=== PATIENT | male | born 1955 | race Caucasian/White ===

== ENCOUNTER → 2018-05-23 | Outpatient (CLI) | payer MEDICAID, MEDICARE ==
[2018-05-23] VITALS (9 sets, daily range): BP systolic 110–133; BP diastolic 64–88
[~2018-05-23] MED LIST: CARDIZEM CD120 MG PO; CARTIA XT240 M1 PO; CEFDINIR300 MG PO; CIPRO500 MG PO; ELIQUIS5 MG PO; ERYTHROMYCIN250 M1 PO; FLAGYL 250 MG250 MG PO; FLOMAX0.4 MG PO; KLOR-CON 1010 MEQ PO; LASIX 80 MG TAB80 MG PO; LISINOPRIL10 MG PO; MIRALAX17 GM PO; PACERONE 200 M200 M1 PO; POTASSIUM20 PO; PREDNISONE 10 M10 MG PO; PROSCAR 5MG TABL5 MG PO; PROTONIX40 M1 PO; SENNA-DOCUSATE1 EACH PO; SINGULAIR 10 MG10 MG PO
--- NOTE | 2018-05-23 15:52 | TEE ---
[place] [address] TRANSESOPHAGEAL ECHOCARDIOGRAM Name: ROSALEE MCCORD Room: [facility]#: [id number] Admission: 05/23/18 Attend Phys: Tre Wyatt, Discharge: Date of : 53 Date of Service: 05/23/18 1552 Report #: [id number] THIS REPORT FOR: //name// APPROVED REPORT Study performed: 05/23/2018 14:03:30 EXAM: Transesophageal Echocardiogram Patient Location: Out-Patient Status: routine BSA: 2.23 HR: 93 bpm BP: 125/70 mmHg Rhythm: Atrial Fibrillation Other Information Study Quality: Good Indications Atrial Fibrillation Echo Enhancing Agent Indication: Rule out Shunt Agent(s) / Amount(s) Used: Agitated Saline 10 cc Procedure After obtaining informed consent, patient underwent transesophageal echo in the [employer]. Type of Sedation : Conscious Sedation Sedation was administered by aSira Laboy. Sedation start time: 1405 Case end Time: 1420 Sedation was achieved intravenously with: Versed (4) Fentanyl (100) Transesophageal probe was inserted and advanced into esophagus without difficulty by Tre Wyatt MD, [facility]. Echo enhancement indication: R/O Septal defect. Echo enhancement agent administered: Agitated Saline The ASTRID was performed without complications. Synchronized Cardioversion acheived with 300 Joules after 1 attempt(s). Rhythm following Synchronized Cardioversion: Normal Sinus Rhythm Throughout the procedure, the blood pressure, pulse oximetry, cardiac rhythm, and rate were monitored. The patient tolerated the procedure without adverse effects. Recovery from conscious sedation was uneventful [place] [address] TRANSESOPHAGEAL ECHOCARDIOGRAM Name: ROSALEE MCCORD Room: [facility]#: [id number] Admission: 05/23/18 Attend Phys: Tre Wyatt, Discharge: Date of : 53 Date of Service: 05/23/18 1552 Report #: [id number] stable. Left Ventricle The left ventricle is normal size. There is normal LV segmental wall motion. There is normal left ventricular wall thickness. Left ventricular systolic function is normal. LVEF is 60-65%. Right Ventricle The right ventricle is normal size. The right ventricular systolic function is normal. Atria No thrombus is visualized in the left atrium or appendage. The left atrium size is normal. Interatrial septum is intact without evidence of ASD or PFO. Lipomatus atrial septal hypertrophy is present. The right atrium size is normal. Aortic Valve The aortic valve is normal in structure. No aortic regurgitation is present. There is no aortic valvular stenosis. Mitral Valve The mitral valve is normal in structure. Trace mitral regurgitation. No evidence of mitral valve stenosis. Tricuspid Valve The tricuspid valve is normal in structure. Mild tricuspid regurgitation. Pulmonic Valve The pulmonary valve is normal in structure. There is no pulmonic valvular regurgitation. Great Vessels The aortic root is normal in size. Pericardium There is no pericardial effusion. <Conclusion> The left ventricle is normal size. There is normal left ventricular wall thickness. Left ventricular systolic function is normal. LVEF is 60-65%. Interatrial septum is intact without evidence of ASD or PFO. Lipomatus atrial septal [place] [address] TRANSESOPHAGEAL ECHOCARDIOGRAM Name: RITU MCCORDSamira Anthony Room: [facility]#: [id number] Admission: 05/23/18 Attend Phys: Tre Wyatt, Discharge: Date of : 53 Date of Service: 05/23/181551 Report #: [id number] No thrombus is visualized in the left atrium or appendage. The left atrium size is normal. Trace mitral regurgitation. Mild tricuspid regurgitation. <ELECTRONICALLY SIGNED> By: Tre Wyatt MD, FACC 05/23/181551 51 51 Tre Wyatt MD, FACC /INF
--- NOTE | 2018-05-28 08:43 | CARD ---
[address] [address] CARDIAC CATH REPORT Name: ROSALEE MCCORD Room: [facility]#: [id number] Admission: 05/23/18 Attend Phys: Tre Wyatt MD Discharge: Date of : 53 Report #: [id number] THIS REPORT FOR: //name// CC: [facility] physician/PCP Ariana Wyatt DATE OF SERVICE: 05/23/2018 INDICATION: Persistent atrial fibrillation. PROCEDURE: Transesophageal guided cardioversion. DESCRIPTION OF PROCEDURE: After informed consent was obtained, a transesophageal echocardiogram was performed and will be reported separately. Finding no evidence of intracardiac thrombus, the patient was cardioverted from atrial fibrillation to normal sinus rhythm with a single biphasic shock of 300 joules. The patient received 4 mg of intravenous Versed and 100 mg of intravenous fentanyl for conscious sedation. The patient tolerated the procedure well without complication. IMPRESSION: 1. Persistent atrial fibrillation. 2. Successful direct current cardioversion to sinus rhythm. RECOMMENDATIONS: The patient to follow up with nurse practitioner. The patient started on amiodarone in loading fashion. <ELECTRONICALLY SIGNED> By: Tre Wyatt MD, [facility] 05/28/18 0843 1553 0105Michael Sophia Wyatt MD, FACC /nt
== END | disposition home or self-care (01) ==
LOC: M.CL 13:36
DX: I48.1 Persistent atrial fibrillation (principal); I34.0 Nonrheumatic mitral (valve) insufficiency; I07.1 Rheumatic tricuspid insufficiency; J44.9 Chronic obstructive pulmonary disease, unspecified; Z79.899 Other long term (current) drug therapy; Z98.890 Other specified postprocedural states

== ENCOUNTER 2018-06-02 14:44 | Inpatient (IN) | payer MEDICARE, MEDICAID ==
[~2018-06-02] VITALS: Ht 185.4 cm; Wt 90.7 kg
--- NOTE | ~2018-06-02 | PROC ---
[address] [address] PROCEDURE REPORT Name: ROSALEE MCCORD Room: [address] ADM IN M.R.#: [id number] Admission: 06/02/18 Attend Phys: Chasity Chávez MD Discharge: Date of : 53 Report #: [id number] THIS REPORT FOR: //name// For GI report, please see the Provation report in Perceptive 7 content. By: [id number] Records Staff [facility] /MORIAH
--- NOTE | ~2018-06-02 | PROC ---
[address] [address] PROCEDURE REPORT Name: ROSALEE MCCORD Room: [address] ADM IN M.R.#: [id number] Admission: 06/02/18 Attend Phys: Chasity Chávez MD Discharge: Date of : 53 Report #: [id number] THIS REPORT FOR: //name// For GI report, please see the Provation report in Perceptive 7 content. By: [facility]2Medical Records Staff JULIAN /MORIAH
--- NOTE | ~2018-06-02 | PROC ---
[address] [address] PROCEDURE REPORT Name: ROSALEE MCCORD Room: [address] ADM IN M.R.#: [id number] Admission: 06/02/18 Attend Phys: Chasity Chávez MD Discharge: Date of : 53 Report #: [id number] THIS REPORT FOR: //name// For GI report, please see the Provation report in Perceptive 7 content. By: [id number] Records Staff [facility] /MORIAH
[~2018-06-02 14:44] MED LIST changes: -CARTIA XT240 M1 PO; -CEFDINIR300 MG PO; -ERYTHROMYCIN250 M1 PO; -FLOMAX0.4 MG PO; -MIRALAX17 GM PO; -POTASSIUM20 PO; -PREDNISONE 10 M10 MG PO; -SENNA-DOCUSATE1 EACH PO; -SINGULAIR 10 MG10 MG PO
[2018-06-02 14:59] VITALS: BP 105/48
[2018-06-02] MEDS ORDERED: CARTIA XT240 M1 PO (15:02)
[2018-06-02] MEDS ORDERED: POTASSIUM20 PO (15:03)
[2018-06-02 15:27] LABS: HEMATOCRIT 43.6 % (42.0-52.0); HEMOGLOBIN 14.4 gm/dL (14.0-18.0); MCH 28.8 pg (26.0-34.0); MCV 87.5 fL (80.0-100.0); MPV 8.7 fl. (7.2-11.1); NUCLEATED RBCS 0 /100WBC; PLATELET COUNT* 268 thou/uL (150-400); RBC 4.98 mil/uL (4.50-6.00); RDW-CV 15.4 % (10.5-14.5); WBC 12.8 thou/uL (4.0-11.0)
[2018-06-02 15:37] LABS: ANION GAP 2 mmol/L (7-16); BUN 20 mg/dL (7-18); CHLORIDE 94 mmol/L (98-107); CO2 37 mmol/L (21-32); CREATININE 0.9 mg/dL (0.6-1.3); GLUCOSE 142 mg/dL (70-99); POTASSIUM 4.1 mmol/L (3.5-5.1); SODIUM 133 mmol/L (136-145)
[2018-06-02 15:42] LABS: ALBUMIN 2.8 g/dL (3.4-5.0); ALKALINE PHOSPHATASE 50 U/L (46-116); LIPASE 175 U/L (73-393); SGOT 12 U/L (15-37); SGPT 17 U/L (30-65); TOTAL BILIRUBIN 0.2 mg/dL (<0.1-1.0); TOTAL PROTEIN 6.3 g/dL (6.4-8.2); TROPONIN-I LEVEL <0.06 ng/mL (<0.06)
[2018-06-02 15:56] LABS: ABSOLUTE BASOPHILS 0.1 thou/uL (0.0-0.2); ABSOLUTE LYMPHOCYTES 0.5 thou/uL (0.8-5.3); ABSOLUTE MONOCYTES 0.6 thou/uL (0.0-1.2); ABSOLUTE NEUTROPHILS 11.5 thou/uL (1.6-8.1); METAMYELOCYTES 1 %
[2018-06-02 15:57] LABS: ANISOCYTOSIS Occasional; PLATELET ESTIMATE ADEQUATE
[2018-06-02 18:16] LABS: URINE BILIRUBIN NEGATIVE (Negative); URINE BLOOD TRACE (Negative); URINE CLARITY CLEAR; URINE COLOR YELLOW; URINE GLUCOSE-RANDOM NEGATIVE (Negative); URINE KETONES NEGATIVE (Negative); URINE LEUKOCYTES-REFLEX NEGATIVE (Negative); URINE NITRITE-REFLEX NEGATIVE (Negative); URINE PROTEIN NEGATIVE (Negative); URINE SPECIFIC GRAVITY <= 1.005 (1.005-1.030); URINE UROBILINOGEN 0.2 E.U./dl (0.2-1.0)
[2018-06-02 18:37] VITALS: BP 94/57
[2018-06-02 18:45] VITALS: BP 101/61
--- NOTE | 2018-06-02 19:07 | NUR ---
RECEIVED REPORT FROM ER. PT ARRIVED ON TELE FLOOR AROUND 1844. PT A&O X4, VSS, O2 SAT >90% ON 3L PER NC. MATERIAL MIXER PLACED. PT ORIENTED TO ROOM BED AND CALL LIGHT. PT DENIES PAIN. PT DENIES CONCERNS AT THIS TIME. BED ALARM ON . CALL LIGHT IS WITHIN REACH. ADMISSION TO BE COMPLETED BY NIGHT RN.
[2018-06-03] VITALS: BP 108/60
--- NOTE | 2018-06-03 01:20 | NUR ---
PATIENT ADMITTED TO THE FLOOR FOR BOWEL OBSTRUCTION. G TUBE PLACED. VERIFICATION PER CXR. INTERMITTENT LOW SUCTION IN PLACE. PATIENT REMAINS NPO, DENIES PAIN, DISCOMFORT, OF SOA. CONT. O2 AT [address] UP WITH SBA. CT IN AM, WITH POSSIBLE SURG. CONT. TO MONITOR. SR ON THE MONITOR. CALL LIGHT IN REACH.
[2018-06-03 04:58] VITALS: BP 123/60
[2018-06-03 05:35] LABS: HEMATOCRIT 45.3 % (42.0-52.0); HEMOGLOBIN 14.6 gm/dL (14.0-18.0); MCH 28.7 pg (26.0-34.0); MCHC 32.3 g/dL (28.0-37.0); MCV 88.9 fL (80.0-100.0); MPV 8.4 fl. (7.2-11.1); RBC 5.09 mil/uL (4.50-6.00); RDW-CV 15.6 % (10.5-14.5); WBC 11.3 thou/uL (4.0-11.0)
[2018-06-03 06:01] LABS: ALBUMIN 2.9 g/dL (3.4-5.0); CREATININE 0.8 mg/dL (0.6-1.3); POTASSIUM 4.9 mmol/L (3.5-5.1); TOTAL BILIRUBIN 0.2 mg/dL (<0.1-1.0); TOTAL PROTEIN 6.5 g/dL (6.4-8.2)
[2018-06-03 08:15] VITALS: BP 106/58
--- NOTE | 2018-06-03 08:15 | NUR ---
ASSUMED PT. CARE AND RECEIVED REPORT AT 0730. PT A/OX4, VSS, MONITOR ON TRACING SR. PT. DENIES CURRENT PAIN/SOB. PT. ON 3L NC @ 92%, CONGESTED COUGH WITH REPORTED CLEAR PHLEGM. NG NOTED TO LIS, VERY LITTLE OUTPUT NOTED AT THIS TIME. PT. DENIES NAUSEA. REPORTS SMALL AMOUNT OF FLATULENCE THIS MORNING. ABD. IS SOFT BUT ROUND AND DISTENDED. FULL ASSESSMENT COMPLETED, REFER TO CHARTING. CALL LIGHT IN REACH, WILL CONTINUE WITH PLAN OF CARE.
--- NOTE | 2018-06-03 13:22 | NUR ---
Pt is A&O. Resides at home alone. Independent with ADLs. No DME. No hx of HH or SNF. Supportive family. Pt states he may need a nurse at id. Following for disposition.
[2018-06-03 16:30] VITALS: BP 113/69
--- NOTE | 2018-06-03 17:24 | EKG ---
[place] [address] ELECTROCARDIOGRAM REPORT Name: ROSALEE MCCORD Room: [address] ADM IN .R.#: [id number] Admission: 06/02/18 Attend Phys: Chasity Chávez MD Discharge: Date of : 53 Report #: [id number] THIS REPORT FOR: //name// [facility] ED Test Date: 2018-06-02 Test Time: 15:20:23 Pat Name: ROSALEE MCCORD Department: Room: [facility] Gender: M Jewelry Facer: Carmita BIRD : 1955 Requested By: Marcus Mcbride Order Number: [id number] MD: Tre Wyatt Measurements Intervals [place] Rate: 88 P: 43 PA: 172 QRS: 91 QRSD: 120 T: 33 QT: 365 QTc: 442 Interpretive Statements Sinus rhythm Incomplete right bundle-branch block Compared to ECG 03/17/2006 12:17:49 Sinus tachycardia no longer present Atrial abnormality no longer present Electronically Signed On 06-03-2018 17:24:25 CDT by Tre Wyatt [email or web address] <ELECTRONICALLY SIGNED> By: Tre Wyatt MD, [facility] 06/03/18 1724 1520 1520 Tre Wyatt MD, [facility] /EPI
--- NOTE | 2018-06-03 18:37 | NUR ---
PT. PROGRESSING TOWARDS GOALS THIS SHIFT. NG REMAINS INPLACE, BUT LIS TURNED OFF PER ORDERS. PT. STARTED BOWEL PREP THIS EVENING FOR COLONOSCOPY TOMORROW WITH POSSIBLE DECOMPRESSION TUBE PLACED. TOLERATED CLEAR LIQUID DIET FOR DINNER. NO REPORTS OF PAIN THIS SHIFT. ONE LOOSE BM. HOURLY ROUNDING COMPLETED THROUGH OUT THE DAY FOR PT. SAFETY.
[2018-06-03 20:30] VITALS: BP 100/54
[2018-06-04] VITALS (7 sets, daily range): BP systolic 103–128; BP diastolic 62–85
[2018-06-04 05:47] LABS: HEMATOCRIT 45.3 % (42.0-52.0); HEMOGLOBIN 14.8 gm/dL (14.0-18.0); MCH 28.7 pg (26.0-34.0); MCHC 32.6 g/dL (28.0-37.0); MPV 8.9 fl. (7.2-11.1); RBC 5.15 mil/uL (4.50-6.00); RDW-CV 15.2 % (10.5-14.5)
[2018-06-04 06:22] LABS: CALCIUM 8.7 mg/dL (8.5-10.1); CREATININE 0.8 mg/dL (0.6-1.3); MAGNESIUM 2.9 mg/dL (1.8-2.4); PHOSPHORUS* 3.8 mg/dL (2.5-4.9); POTASSIUM 4.8 mmol/L (3.5-5.1)
--- NOTE | 2018-06-04 07:55 | NUR ---
PATIENT RESTING IN BED. BUTTOCKS RED, INSTRUCTED OF NEED TO TURN Q2H, STATES UNDERSTANDING. PHOTO TAKEN AND BARRIER CREAM APPLIED. VOIDING PER URINAL. UP WITH ASSIST. DENIES PAIN OR NEEDS. TOLERATING BOWEL PREP, NO STOOL NOTED OUT THROUGH THE NIGHT. NO N/V. BED ALARM ON. WILL MONITOR.
--- NOTE | 2018-06-04 10:42 | NUR ---
RECEIVED REPORT FROM ALEENA JOSEPH. ASSUMED CARE OF PT AROUND 0730. PT A&O X4. VSS. O2 SAT 93% ON 3L PER NC - PT USING O2 NEEDED, STATES HE DOES NOT USE ANY AT HOME. WATCH AND CLOCK MAKER AND REPAIRER IN PLACE THIS AM TRACING SR, PT NOW MED SURGE STATUS, MONITOR REMOVED. IV TO LEFT AC INTACT AND INFUSING IVF. NG TUBE IN PLACE TO LEFT NARE, CLAMPED. PT DENIES PAIN OR DISCOMFORT. PT HAS COMPLETED BOWEL PREP FOR COLONOSCOPY THIS AFTERNOON, BUT SO FAR HAS NOT HAD A BM POST PREP. NOTIFIED, AWAITING ORDERS. ABDOMEN IS DISTENDED, FIRM, BOWEL SOUNDS ACTIVE IN ALL FOUR QUADRANTS. PT DENIES PASSING ROBBY, DENIES NAUSEA. PT NPO. PROCALAMINE INFUSING PER ORDERS. PT CURRENTLY SITTING UP IN BED. FALL PRECAUTIONS IN PLACE. CALL LIGHT IS WITHIN REACH. HOURLY ROUNDING PERFORMED. WCTM.
--- NOTE | 2018-06-04 14:46 | NUR ---
RECEIVED NOTIFICATION FROM DR WILBURN TO PROCEED WITH COLONOSCOPY. PT LEFT FOR PACU AROUND 1305 AND RETURNED AROUND 1430. SEE REPORT. PT TO CONTINUE WITH BOWEL PREP - SIGNIFICANT AMOUNTS OF STOOL PRESENT PER DR WILBURN. NO OBSTRUCTION OR MASSESS NOTED. CLEAR LIQUID DIET. NG TUBE REMOVED IN PACU. PACU NURSE CAN STATED PT ABLE TO COUGH UP LARGE AMOUNTS OF YELLOW TINGED SPUTUM - PT NOW BREATHING BETTER. VSS - 107/77, 97 HR, 22 RESPIRATIONS, 97.8 TEMP, 93% ON RA. PT CURRENTLY SITTING UP ON SIDE OF BED; LOW FALL RISK PRECAUTIONS IN PLACE. PT STEADY ON FEET. CALL LIGHT IS WITHIN REACH. HOURLY ROUNDING PERFORMED. WCTM.
--- NOTE | 2018-06-04 18:31 | NUR ---
VSS. O2 SAT >90% ON RA, PT USING 2L NC NEEDED. PT HAS HAD VERY GOOD URINE OUTPUT THIS SHIFT. PT DRINKING GOLYTELY BOWEL PREP. IV TO LEFT AC INTACT AND INFUSING PROCALAMINE PER ORDER. PT TOLERATING CLEAR LIQUID DIET. PT HAS HAD NO BM'S SINCE RETURNING FROM COLONOSCOPY. PT TO TRANSFER TO ROOM 11O. WAITING FOR ROOM TO BE CLEANED. WILL CALL REPORT ONCE ROOM READY. PT CURRENTLY WATCHING TV IN BED. CALL LIGHT IS WITHIN REACH. HOURLY ROUNDING PERFORMED. FALL PRECAUTIONS IN PLACE. WCTM UNTIL PT TRANSFERS TO 11O.
[2018-06-05 03:58] LABS: HEMATOCRIT 48.6 % (42.0-52.0); HEMOGLOBIN 15.6 gm/dL (14.0-18.0); MCH 28.6 pg (26.0-34.0); MCHC 32.1 g/dL (28.0-37.0); MPV 8.9 fl. (7.2-11.1); RBC 5.46 mil/uL (4.50-6.00); RDW-CV 15.5 % (10.5-14.5); WBC 11.2 thou/uL (4.0-11.0)
[2018-06-05 04:18] LABS: ALBUMIN 3.3 g/dL (3.4-5.0); CALCIUM 8.6 mg/dL (8.5-10.1); CREATININE 0.8 mg/dL (0.6-1.3); MAGNESIUM 3.2 mg/dL (1.8-2.4); POTASSIUM 5.5 mmol/L (3.5-5.1); TOTAL BILIRUBIN 0.3 mg/dL (<0.1-1.0); TOTAL PROTEIN 6.4 g/dL (6.4-8.2)
[2018-06-05 04:35] VITALS: BP 122/81
--- NOTE | 2018-06-05 04:47 | NUR ---
Transferred from at about 2000 last evening. He is alert and oriented x 4. His abdomen is distended and his umbilicus is protruding. He has bowel sounds x 4 that are hypoactive. He has been having a bowel prep which includes, go-lytely, 2 bisacodyl tabs & miralax. He has had no results from the prep and has had no flatus. He states the distention has actually improved and that he has no pain. Vitals are stable, roomair sat was 85%, he was started on 3L n/c at about 2150. He is up with stand assist to the bathroom. He hasn't slept. Will continue to monitor.
[2018-06-05 08:15] VITALS: BP 105/64
--- NOTE | 2018-06-05 10:08 | NUR ---
ASSUMED CARE OF PT AROUND 0730 THIS AM. REFER TO ASSESSMENT. PT CONTINUING TO HAVE BROWN SEMI-FORMED STOOLS. GI PHYSICIAN AT BEDSIDE THIS AM AND ORDERED TO CONTINUE GO LYTELY UNTIL STOOLS CLEAR. ANTICIPATE COLONOSCOPY TOMORROW. NO OTHER CONCERNS AT THIS TIME. CLWR. WCTM.
[2018-06-05 14:03] LABS: ANION GAP < 0 mmol/L (7-16); BUN 20 mg/dL (7-18); CALCIUM 7.7 mg/dL (8.5-10.1); CHLORIDE 99 mmol/L (98-107); CO2 39 mmol/L (21-32); CREATININE 0.8 mg/dL (0.6-1.3); GLUCOSE 131 mg/dL (70-99); MAGNESIUM 2.7 mg/dL (1.8-2.4); SODIUM 137 mmol/L (136-145)
[2018-06-05 14:04] LABS: POTASSIUM 4.3 mmol/L (3.5-5.1)
[2018-06-05 15:44] VITALS: BP 120/84
--- NOTE | 2018-06-05 16:45 | NUR ---
PT SOMEWHAT PROGRESSING TOWARDS GOALS THIS SHIFT. PT HAS ALMOST COMPLETED A SECOND GALLON OF GOLYTELY AND NOT REPORTING CLEAR STOOLS AT THIS TIME. WILL CONTINUE GOLYTELY UNTIL STOOLS CLEAR. ANTICIPATE COLONOSCOPY TOMORROW. ORDER FOR PICC PLACEMENT TOMORROW WELL FOR TPN. NO OTHER CONCERNS AT THIS TIME. CLWR. WCTM.
[2018-06-05 20:00] VITALS: BP 141/94
[2018-06-05 23:55] VITALS: BP 125/82
[2018-06-06 04:23] VITALS: BP 113/74
[2018-06-06 04:31] LABS: HEMATOCRIT 48.5 % (42.0-52.0); HEMOGLOBIN 15.8 gm/dL (14.0-18.0); MCH 29.1 pg (26.0-34.0); MCHC 32.6 g/dL (28.0-37.0); MCV 89.1 fL (80.0-100.0); MPV 8.8 fl. (7.2-11.1); RBC 5.45 mil/uL (4.50-6.00); RDW-CV 15.7 % (10.5-14.5); WBC 9.3 thou/uL (4.0-11.0)
[2018-06-06 04:54] LABS: CALCIUM 8.8 mg/dL (8.5-10.1); CREATININE 0.7 mg/dL (0.6-1.3); MAGNESIUM 2.7 mg/dL (1.8-2.4); POTASSIUM 4.1 mmol/L (3.5-5.1)
--- NOTE | 2018-06-06 07:44 | NUR ---
Alert and oriented x 4. Abdomen is very distended and he had hypoactive bowel sounds at start of shift. This later end of the shift his bowel sounds are hyperactive. He's had around 3 gallons of golytely. He had 2 bowel movements this shift. He is still very distended and bowel movement was thick,liquid and brown, not clear at all. Call placed to GI answering service this am at 0620 to request further instructions to what to do about the BM not being clear. Colonscopy is scheduled for 1230. IV in left AC was leaking. New IV restarted in right forearm 20 gauge. He hasn't slept well this shift. Denies pain or nausea.
[2018-06-06 07:50] VITALS: BP 113/73
[2018-06-06 11:38] VITALS: BP 128/81
[2018-06-06 11:57] VITALS: BP 130/75
--- NOTE | 2018-06-06 18:40 | NUR ---
PATIENT A&OX4, 2L O2 VIA NC. DROPS TO 86% ON ROOM AIR. IV RIGHT FOREARM FLUIDS INFUSSING. ORDERS TO D/C FLUIDS ONCE TPN STARTS. UP STAND BY, WEAK, STEADY. BMX2 TODAY, LIQUID BROWN. COLONOSCOPY TODAY, RESULTS PENDING. PIC LINE PLACED TPN TO START TONIGHT. NO C/O PIAN/N/V. NO OTHER CONCERNS AT THIS TIME. APPROPRAITE AND COOPORATIVE.
[2018-06-06 22:00] VITALS: BP 126/85
[2018-06-07 00:34] VITALS: BP 122/80
[2018-06-07 04:46] VITALS: BP 114/68
[2018-06-07 04:55] LABS: HEMATOCRIT 43.2 % (42.0-52.0); MCHC 32.5 g/dL (28.0-37.0); MCV 89.1 fL (80.0-100.0); MPV 8.5 fl. (7.2-11.1); RBC 4.84 mil/uL (4.50-6.00); RDW-CV 15.4 % (10.5-14.5)
[2018-06-07 04:58] LABS: ALBUMIN 2.6 g/dL (3.4-5.0); ALKALINE PHOSPHATASE 32 U/L (46-116); ANION GAP < 0 mmol/L (7-16); BUN 13 mg/dL (7-18); CALCIUM 8.2 mg/dL (8.5-10.1); CHLORIDE 101 mmol/L (98-107); CO2 36 mmol/L (21-32); CREATININE 0.6 mg/dL (0.6-1.3); GLUCOSE 163 mg/dL (70-99); MAGNESIUM 2.5 mg/dL (1.8-2.4); SGOT 11 U/L (15-37); SGPT 20 U/L (30-65); SODIUM 136 mmol/L (136-145); TOTAL BILIRUBIN 0.4 mg/dL (<0.1-1.0); TOTAL PROTEIN 5.4 g/dL (6.4-8.2)
--- NOTE | 2018-06-07 05:40 | NUR ---
PATIENT HAS REMAINED ALERT AND ORIENTED X 4 THROUGHOUT THE SHIFT AND RESTING QUIETLY ON HOURLY ROUNDS. DENIES NAUSEA OVERNIGHT. NO BM'S THIS SHIFT. LOOSE COUGH WITH CLEAR PRODUCTION. 02 AT 3L/MIN OVERNIGHT. RT TREATMENTS ORDERED. TPN INITIATED HS. VITAL SIGNS STABLE. CONTINUE TO MONITOR.
[2018-06-07 08:00] VITALS: BP 105/60
[2018-06-07 15:48] VITALS: BP 112/66
--- NOTE | 2018-06-07 17:16 | NUR ---
PATIENT A&OX4, 3L O2 VIA NC, RIGHT UPPER ARM PIC, DOUBLE LUMEN, FLUIDS INFUSSING. NO C/O PAIN/N/V. TOLLERATING REGULAR DIET. LOOSE COUGH, NO SPUTUM. NO OTHER CONCERNS AT THIS TIME. APPROPRIATE AND COOPORATIVE WITH CARE.
[2018-06-07 21:00] VITALS: BP 129/74
[2018-06-08 04:42] LABS: HEMATOCRIT 45.4 % (42.0-52.0); HEMOGLOBIN 14.2 gm/dL (14.0-18.0); MCHC 31.3 g/dL (28.0-37.0); MPV 9.1 fl. (7.2-11.1); RBC 4.58 mil/uL (4.50-6.00); RDW-CV 17.8 % (10.5-14.5); WBC 9.1 thou/uL (4.0-11.0)
[2018-06-08 05:07] LABS: MCV 99.1 fL (80.0-100.0)
--- NOTE | 2018-06-08 06:28 | NUR ---
PATIENT HAS SLEPT WELL THROUGHOUT THE NIGHT WITHOUT ANY ISSUES. NO C/O PAIN. NO NAUSEA OR VOMITING. VSS ON 3L 02 VIA NASAL CANNULA. DOUBLE LUMEN PICC LINE TO RIGHT UPPER ARM-TPN @ 80ML/HR. IV ABT GIVEN WITHOUT ANY ADVERSE SIDE EFFECTS. PATIENT INSTRUCTED TO USE CALL LIGHT WHEN NEEDING ASSISTANCE. HOURLY ROUNDS MADE. WILL CONTINUE WITH PLAN OF CARE AND NURSING TO MONITOR.
[2018-06-08 08:20] VITALS: BP 110/70
[2018-06-08 09:24] LABS: ANION GAP < 0 mmol/L (7-16); BUN 20 mg/dL (7-18); CALCIUM 8.2 mg/dL (8.5-10.1); CHLORIDE 100 mmol/L (98-107); CO2 39 mmol/L (21-32); CREATININE 0.6 mg/dL (0.6-1.3); GLUCOSE 166 mg/dL (70-99); MAGNESIUM 2.4 mg/dL (1.8-2.4); POTASSIUM 4.7 mmol/L (3.5-5.1); SODIUM 138 mmol/L (136-145)
[2018-06-08 12:06] VITALS: BP 104/66
[2018-06-08 16:05] VITALS: BP 93/61
--- NOTE | 2018-06-08 17:00 | NUR ---
PATIENT ALERT AND ORIENTED X 4. VITAL SIGNS STABLE ON 3L O2 NASAL CANULA. UP AD JENIFER IN ROOM AND AMBULATING IN HALLWAY. GAIT STEADY. TOLERATING REGULAR DIET. PICC TO UPPER RIGHT ARM PATENT WITH TPN INFUSING. DENIES PAIN AND NAUSEA. HOURLY ROUNDS MAINTAINED THROUGHOUT THE SHIFT. CALL LIGHT WITHIN REACH. NURSING WILL CONTINUE TO MONITOR.
[2018-06-08 21:20] VITALS: BP 108/69
[2018-06-09 05:52] LABS: HEMATOCRIT 45.6 % (42.0-52.0); HEMOGLOBIN 14.7 gm/dL (14.0-18.0); MCH 29.5 pg (26.0-34.0); MCHC 32.2 g/dL (28.0-37.0); MPV 9.3 fl. (7.2-11.1); RBC 4.97 mil/uL (4.50-6.00); RDW-CV 16.4 % (10.5-14.5); WBC 11.6 thou/uL (4.0-11.0)
[2018-06-09 05:56] LABS: MCV 91.7 fL (80.0-100.0)
[2018-06-09 06:06] LABS: INR 1.2; PROTIME 11.5 Seconds (9.20-11.50)
[2018-06-09 06:18] LABS: ALBUMIN 2.6 g/dL (3.4-5.0); CALCIUM 7.4 mg/dL (8.5-10.1); CREATININE 0.8 mg/dL (0.6-1.3); POTASSIUM 4.3 mmol/L (3.5-5.1); TOTAL BILIRUBIN 0.5 mg/dL (<0.1-1.0); TOTAL PROTEIN 6.6 g/dL (6.4-8.2)
--- NOTE | 2018-06-09 06:59 | NUR ---
PATIENT HAS BEEN RESTING COMFORTABLY THROUGHOUT THE NIGHT. NO C/O PAIN. NO NAUSEA OR VOMITING. VSS ON 3L 02 VIA NASAL CANNULA. PATIENT HAS LOOSE BM DURING SHIFT AND IS PASSING GAS. DOUBLE LUMEN PICC TO RIGHT UPPER ARM-TPN @40ML/HR. MEDICATIONS GIVEN ORDERED AND CHARTED. PATIENT INSTRUCTED TO USE CALL LIGHT WHEN NEEDING ASSISTANCE. HOURLY ROUNDS MADE. WILL CONTINUE WITH PLAN OF CARE AND NURSING TO MONITOR.
[2018-06-09 08:00] VITALS: BP 104/64
[2018-06-09 16:37] VITALS: BP 120/83
--- NOTE | 2018-06-09 18:48 | NUR ---
ALERT AND ORIENTED X4. UP AD JENIFER DURING AMBULATION. DENIES NEED FOR PAIN MEDICATION. DENIES NAUSEA. PICC IS PATENT AND INFUSING TPN. AMBULATES IN HALLWAY THROUGHOUT SHIFT. VSS ON ROOM AIR. HOURLY ROUNDS HAVE BEEN MAINTAINED THROUGHOUT SHIFT. CALL LIGHT IS WITHIN REACH. NURSING WILL CONTINUE TO MONITOR.
[2018-06-09 21:00] VITALS: BP 137/82
[2018-06-10 04:35] LABS: HEMATOCRIT 46.8 % (42.0-52.0); HEMOGLOBIN 15.3 gm/dL (14.0-18.0); MCH 29.2 pg (26.0-34.0); MCHC 32.7 g/dL (28.0-37.0); MCV 89.3 fL (80.0-100.0); MPV 9.2 fl. (7.2-11.1); RBC 5.25 mil/uL (4.50-6.00); RDW-CV 15.6 % (10.5-14.5); WBC 10.7 thou/uL (4.0-11.0)
[2018-06-10 04:54] LABS: ALBUMIN 2.8 g/dL (3.4-5.0); CALCIUM 8.1 mg/dL (8.5-10.1); CREATININE 0.6 mg/dL (0.6-1.3); POTASSIUM 4.4 mmol/L (3.5-5.1); TOTAL BILIRUBIN 0.4 mg/dL (<0.1-1.0); TOTAL PROTEIN 5.9 g/dL (6.4-8.2)
--- NOTE | 2018-06-10 05:44 | NUR ---
PATIENT HAS SLEPT THROUGHOUT THE NIGHT. VSS ON RA. PATIENT HAS BEEN ENCOURAGED TO DRINK BOWEL PREP BUT NOT HAVING SIGNIFICANT BOWEL MOVEMENTS DURING THE NIGHT. PATIENT URINATING ADEQUATELY. BOWEL SOUNDS ARE HYPERACTIVE THIS AM. PICC TO RIGHT UPPER ARM-SL. PATIENT INSTRUCTED TO USE CALL LIGHT WHEN NEEDING ASSISTANCE. HOURLY ROUNDS MADE. WILL CONTINUE WITH PLAN OF CARE AND NURSING TO MONITOR.
[2018-06-10 07:45] VITALS: BP 131/92
--- NOTE | 2018-06-10 12:32 | CON ---
[address] [address] CONSULTATION Name: FLEXROSALEE W Room: [address] ADM IN .R.#: [id number] Admission: 06/02/18 Attend Phys: Chasity Chávez MD Discharge: Date of : 53 Report #: [id number] THIS REPORT FOR: //name// CC: [facility] physician/PCP Chasity Chávez DATE OF SERVICE: 06/03/2018 REQUESTING PHYSICIAN: Chasity Chávez MD REASON FOR CONSULT: Abdominal pain and distention. HISTORY OF PRESENT ILLNESS: This is a 62-year-old male who was admitted with abdominal pain and distention. The patient has recently been hospitalized at [facility] on 05/01/2018. At that time, he underwent endoscopic evaluation, which revealed a narrowing in the sigmoid colon due to inflammation and erosions of the sigmoid colon. The patient subsequently was placed on antibiotics and it was planned to repeat colonoscopy in 4 weeks. During hospitalization, the patient's course was complicated with a-fib and rapid ventricular rate. This was dealt with medication. The patient also underwent cardioversion and was asked to follow up with cardiology. Currently, the patient reports that he had a bowel movement last, yesterday. He reports that he had a large BM. He also has been passing gas. He has a NG tube in place with minimal output. Since hospitalization, he had a CT of abdomen and pelvis, which shows a mass-like effect in the sigmoid colon. This is most probably not a mass what was noted per endoscopy at [facility]. PAST MEDICAL HISTORY: Significant for history of COPD, colitis, hypertension, a-fib, cardioversion, GERD. ALLERGIES AND MEDICATIONS: Please refer to hospital [facility]. SOCIAL HISTORY: The patient lives alone in [place]. 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 He used to drink, but has quit in the . FAMILY HISTORY: Noncontributory. PHYSICAL EXAMINATION: VITAL SIGNS: Reveals blood pressure of 106/58, respirations 16, pulse 91, temperature 97.8. LUNGS: Clear. CARDIOVASCULAR: Regular. ABDOMEN: Large, soft, mildly distended. [place] [address] CONSULTATION Name: ROSALEE MCCORD Room: [address] IN [facility]#: [id number] Admission: 06/02/18 Attend Phys: Chasity Chávez MD Discharge: Date of : 53 Report #: [id number] NEUROLOGIC: The patient is alert, oriented times 3. LABORATORY DATA: Labs reveal sodium of 131, potassium 4.9, BUN is 17, creatinine 0.8, glucose 149, AST is 12, ALT 17, alkaline phosphatase 54, total bilirubin is 0.2, albumin is 2.9. WBC is 11.3, hemoglobin is 14.6, and platelets are 253. IMAGING DATA: CT of abdomen and pelvis was obtained on admission. This was significant for a 5.7 x 4.4 cm mass in the sigmoid colon. Rectal contrast was passing beyond the mass, suggestive of not full obstruction. There was also colonic diverticulosis without any evidence of diverticulitis. The gallbladder also appeared enlarged at 11 cm. ASSESSMENT AND PLAN: The patient with colitis of the sigmoid, which is causing a partial obstruction. He has abdominal distention and has been receiving antibiotics. The biopsies of the colon from a colonoscopy on 05/02/2018 was suggestive of colonic ischemia without any dysplasia or granulomas. We will repeat his colonoscopy tomorrow and if the inflammation causing obstruction, we will put a decompression rectal tube. We will make further recommendation once the endoscopic and colonoscopy is complete. Meanwhile, we will continue the Levaquin and Flagyl, which have been initiated in ER. <ELECTRONICALLY SIGNED> By: Tim Camejo MD 06/10/18 1232 1616 [id number] Camejo MD /nt
[2018-06-10 15:34] VITALS: BP 133/84
--- NOTE | 2018-06-10 18:22 | NUR ---
PT IS ALERT AND ORIENTED X 4; FORGETFUL AT TIMES. AMBULATES INDEPENDENTLY IN HALLWAY. PICC LINE PATENT AND INFUSING. PICC LINE DRESSING CHANGE DONE TODAY. PT IS CURRENTLY ON BOWEL PREP FOR COLONOSCOPY WITH DECOMPRESSION FOR TOMORROW. TOLERATING CLEAR LIQUID DIET. DENIES PAIN AND NAUSEA. VS STABLE. HOURLY ROUNDS MAINTAINED. CALL LIGHT WITHIN REACH. NURSING WILL CONTINUE TO MONITOR.
[2018-06-10 21:05] VITALS: BP 133/86
[2018-06-11 04:38] LABS: HEMATOCRIT 46.4 % (42.0-52.0); HEMOGLOBIN 15.2 gm/dL (14.0-18.0); MCH 29.1 pg (26.0-34.0); MCHC 32.8 g/dL (28.0-37.0); MCV 88.7 fL (80.0-100.0); RBC 5.23 mil/uL (4.50-6.00); RDW-CV 15.9 % (10.5-14.5); WBC 9.1 thou/uL (4.0-11.0)
--- NOTE | 2018-06-11 04:50 | NUR ---
PATIENT HAS REMAINED ALERT AND ORIENTED X 4 THROUGHOUT THE SHIFT AND RESTING QUIETLY ON HOURLY ROUNDS. O2 REMAINS ON AT 2L/MIN TO MAINTAIN O2 SATS >92%. RT TREATMENTS ORDERED. LOOSE COUGH. UP INDEPENDENTLY IN THE ROOM. 3 LARGE LIQUID BM'S OVERNIGHT. PATIENT HAS HAD SOME RELIEF WITH ABDOMINAL DISCOMFORT AND PRESSURE, BUT REMAINS DISTENTED WITH BOWEL SOUNDS SOMEWHAT TYMPANIC. NPO AT MIDNIGHT FOR COLONOSCOPY WITH DECOMPRESSION. VITAL SIGNS STABLE. CONTINUE TO MONITOR.
[2018-06-11 05:08] LABS: ALBUMIN 2.8 g/dL (3.4-5.0); CALCIUM 7.9 mg/dL (8.5-10.1); CREATININE 0.6 mg/dL (0.6-1.3); POTASSIUM 3.1 mmol/L (3.5-5.1); TOTAL BILIRUBIN 0.5 mg/dL (<0.1-1.0); TOTAL PROTEIN 5.6 g/dL (6.4-8.2)
[2018-06-11 16:00] VITALS: BP 117/68
--- NOTE | 2018-06-11 19:38 | NUR ---
ALERT AND ORIENTED X4. PATIENT HAS BEEN UP AD JENIFER, BUT IS NOW CONNECTED TO SUCTION SO WILL NEED TO BE STAND BY ASSIST. PICC IS PATENT AND SALINE LOCKED. DENIES PAIN AND NAUSEA. WAS OFF UNIT FOR COLONOSCOPY WITH COLON DECOMPRESSION TUBE PLACED, THAT IS CONNECTED TO LOW INTERMITTENT SUCTION. TOLERATING HEART HEALTHY DIET. VSS ON 3L O2. HOURLY ROUNDS HAVE BEEN MAINTAINED WHILE ON UNIT. CALL LIGHT IS WITHIN REACH. NURSING WILL CONTINUE TO MONITOR.
[2018-06-11 20:00] VITALS: BP 92/54
--- NOTE | 2018-06-12 04:38 | NUR ---
PATIENT ALERT AND ORIENTED X4. UP WITH ASSIST X1. VOIDING ADEQUATELY PER URINAL. COLONIC DECOMPRESSION TUBE PATENT TO LIS, FLUSHED PER ORDERS. DENIES PAIN. TOLERATING DIET. VITALS STABLE. WILL CONTINUE TO MONITOR.
[2018-06-12 06:17] LABS: HEMATOCRIT 44.7 % (42.0-52.0); HEMOGLOBIN 14.6 gm/dL (14.0-18.0); MCHC 32.7 g/dL (28.0-37.0); MCV 88.6 fL (80.0-100.0); NUCLEATED RBCS 0 /100WBC; PLATELET COUNT* 162 thou/uL (150-400); RBC 5.05 mil/uL (4.50-6.00); RDW-CV 15.6 % (10.5-14.5); WBC 11.5 thou/uL (4.0-11.0)
[2018-06-12 06:38] LABS: ALBUMIN 2.5 g/dL (3.4-5.0); ALKALINE PHOSPHATASE 32 U/L (46-116); ANION GAP < 0 mmol/L (7-16); BUN 24 mg/dL (7-18); CALCIUM 7.6 mg/dL (8.5-10.1); CHLORIDE 100 mmol/L (98-107); CO2 40 mmol/L (21-32); CREATININE 0.6 mg/dL (0.6-1.3); GLUCOSE 90 mg/dL (70-99); MAGNESIUM 2.2 mg/dL (1.8-2.4); PHOSPHORUS* 2.8 mg/dL (2.5-4.9); POTASSIUM 4.4 mmol/L (3.5-5.1); SGOT 15 U/L (15-37); SGPT 34 U/L (30-65); SODIUM 139 mmol/L (136-145); TOTAL BILIRUBIN 0.6 mg/dL (<0.1-1.0); TOTAL PROTEIN 5.1 g/dL (6.4-8.2)
[2018-06-12 06:54] LABS: ABSOLUTE LYMPHOCYTES 0.8 thou/uL (0.8-5.3); ABSOLUTE MONOCYTES 0.5 thou/uL (0.0-1.2); ABSOLUTE NEUTROPHILS 10.2 thou/uL (1.6-8.1); PLATELET ESTIMATE ADEQUATE
[2018-06-12 06:55] LABS: ANISOCYTOSIS 1+; POIKILOCYTOSIS 1+
[2018-06-12 07:50] VITALS: BP 101/62
--- NOTE | 2018-06-12 15:04 | NUR ---
COLONIC DECOMPRESSION TUBE CAME OUT WHEN PATIENT STOOD TO USE THE URINAL. PATIENT HAS HAD 2 BOWEL MOVEMENTS SINCE TUBE OUT. GI NOTIFIED BUT NO RETURN CALL OF THIS TIME.
--- NOTE | 2018-06-12 16:22 | NUR ---
PATIENT REMAINS ALERT AND ORIENTED. DENIES PAIN OR NAUSEA. TOLERATING MEALS. COLONIC DECOMPRESSION TUBE FELL OUT THIS AFTERNOON. MULTIPLE BM'S. AMBULATING IN [place] AD JENIFER. AWAITING RETURN CALL FROM GI- PAGED X2. CALL LIGHT WITHINR EACH. WILL CONTINUE TO MONITOR.
[2018-06-12 16:49] VITALS: BP 122/76
--- NOTE | 2018-06-12 17:19 | NUR ---
DR. WILBURN RETURNED CALL. NO NEW ORDERS
[2018-06-12 20:00] VITALS: BP 108/74
--- NOTE | 2018-06-13 04:53 | NUR ---
PATIENT ORIENTED X4 ON HOURLY ROUNDS. UP AD JENIFER. PATIENT REPORTS BM X4 THIS SHIFT. DENIES NAUSEA. ABDOMEN IS SOFT AND ROUND, ACTIVE BOWEL SOUNDS. VITALS STABLE. CONTINUE TO MONITOR.
[2018-06-13 05:38] LABS: CALCIUM 7.8 mg/dL (8.5-10.1); CREATININE 0.5 mg/dL (0.6-1.3); MAGNESIUM 2.2 mg/dL (1.8-2.4); POTASSIUM 4.3 mmol/L (3.5-5.1)
[2018-06-13 08:20] VITALS: BP 114/62
--- NOTE | 2018-06-13 14:40 | NUR ---
PT.UP IN HALLS. ASKED IF HE HAD ANY CONCERNS OR QUESTIONS ABOUT HIS STAY.HE SAID HE DID NOT. DISCHARGE DATE UNDETERMINED. HE SHOULD NOT HAVE ANY DISCHARGE NEEDS.
[2018-06-13 16:00] VITALS: BP 120/58
--- NOTE | 2018-06-13 16:07 | NUR ---
ASSUMED PATIENT CARE AT 1515. PATIENT RESTING IN BED AT THIS TIME. CONTINUE TO MONITOR.
--- NOTE | 2018-06-13 16:18 | CON ---
[address] [address] CONSULTATION Name: ROSALEE MCCORD Raj Room: [address] IN ..#: [id number] Admission: 06/02/18 Attend Phys: Chasity Chávez MD Discharge: Date of : 53 Report #: [id number] THIS REPORT FOR: //name// CC: GALE physician/PCP Chasity Chávez DATE OF SERVICE: 06/12/2018 CARDIOLOGY CONSULTATION INDICATION: Paroxysmal atrial fibrillation, diastolic heart failure. HISTORY OF PRESENT ILLNESS: The patient is a very pleasant 62-year-old gentleman with history of paroxysmal atrial fibrillation, status post transesophageal-guided cardioversion last month. He is maintaining sinus rhythm on amiodarone and diltiazem. He was admitted to the hospital with obstipation/constipation and colonic obstruction. This is gradually resolving. During this hospitalization, his cardiac medications have been adjusted as his blood pressure has been stable. He has remained on his diuretic dose. Review today shows his heart rate to be well compensated. He denies chest pain. He is not having orthopnea. He has been up walking without significant dyspnea. He has trace ankle edema at this time. He is without cardiac complaint. PAST MEDICAL HISTORY: 1. Paroxysmal atrial fibrillation. 2. Diastolic heart failure. 3. Tobacco use. HOME MEDICATIONS: Amiodarone 200 mg b.i.d., furosemide 80 mg daily, Eliquis 5 mg b.i.d., lisinopril 10 mg daily, diltiazem 240 mg daily, potassium chloride 20 mEq b.i.d. ALLERGIES: None known. SOCIAL HISTORY: The patient smokes 2 packs of cigarettes daily. No alcohol use. FAMILY HISTORY: Positive for heart disease and stroke. PHYSICAL EXAMINATION: VITAL SIGNS: Stable. Blood pressure 122/76, pulse 71 and regular. GENERAL: This is a pleasant elderly gentleman who is in no distress. Mood and affect appropriate. HEENT: The patient is wearing glasses. Extraocular muscles intact. Mucous membranes moist. NECK: Shows no jugular venous distention. There are [place] [address] CONSULTATION Name: ROSALEE MCCORD Room: [address] IN [facility]#: [id number] Admission: 06/02/18 Attend Phys: Chasity Chávez MD Discharge: Date of : 53 Report #: [id number] CHEST: Reveals clear lung tyler. CARDIOVASCULAR: Reveals a regular rhythm, normal S1 and S2. I do not appreciate gallop or murmur. ABDOMEN: Reveals the abdomen to be mildly distended and soft. EXTREMITIES: Show trace ankle edema. SKIN: Warm and dry. A 12-lead EKG shows sinus rhythm with no acute ST segment abnormalities. IMPRESSION AND RECOMMENDATIONS: 1. Chronic diastolic heart failure, presently well compensated. We will decrease furosemide to 40 mg daily. 2. Paroxysmal atrial fibrillation, presently maintaining sinus rhythm. We will continue amiodarone 200 mg daily and anticoagulation in the form of Eliquis. Continue diltiazem for rate control. 3. Hypertension. Blood pressure adequately controlled presently. We will follow. <ELECTRONICALLY SIGNED> By: Tre Wyatt MD, FACC 06/13/18 1618 1719 [id number] Wyatt MD, FACC /nt
--- NOTE | 2018-06-13 17:53 | NUR ---
PATIENT AMBULATING IN HALLS FREQUENTLY. BM X2 TODAY. DENIES PAIN. ABDOMEN SOFT AND NONDISTENDED. ACTIVE BOWEL SOUNDS. VITALS STABLE. CONTINUE TO MONITOR.
--- NOTE | 2018-06-14 05:35 | NUR ---
PATIENT REMAINS ALERT AND ORIENTED X4 THROUGHOUT SHIFT. VITAL SIGNS STABLE ON ROOM AIR. PICC LINE PATENT IN THE RIGHT UPPER ARM. TRANSFERS AD JENIFER TO THE RESTOOM. HAS HAD SEVERAL BOWEL MOVEMENTS THROUGHOUT THE NIGHT. TOLERATING DIET. DENIES PAIN OR NAUSEA. REPOSITIONING SELF IN BED. HOURLY ROUNDING COMPLETE. CALL LIGHT WITHIN REACH. NURSING WILL CONTINUE TO MONITOR.
[2018-06-14 08:15] VITALS: BP 105/79
[2018-06-14] MEDS ORDERED: SENNA-DOCUSATE1 EACH PO (09:12)
[2018-06-14] MEDS ORDERED: ERYTHROMYCIN250 M1 PO (09:12)
[2018-06-14] MEDS ORDERED: MIRALAX17 GM PO (09:12)
[2018-06-14 14:16] VITALS: BP 105/79
--- NOTE | 2018-06-14 17:03 | NUR ---
1505 PRIOR TO DISCHARGE THIS NURSE RECEIVED ORDERS TO D/C PICC LINE TO JESSICA, PT PLACED IN SUPINE POSITION ON BED UPON ASSESSMENT OF SITE THERE IS NO REDNESS OR SWELLING NOTED, MINIMAL BRUISING TO SITE FROM PLACEMENT IS EVIDENT, TRANSPARENT DRSG REMOVED WITHOUT DIFFICULTY, INSTRUCTED PT TO HOLD HIS BREATH WHILE PICC BEING REMOVED, PT COMPLIANT, SITE COVERED WITH STERILE GAUZE AND DRSG PLACED OVER SITE, PT HANDLED REMOVAL WELL, NO C/O PAIN, LIGHT HEADEDNESS OR SO SOA NOTED. 1530 PT DISCHARGED AT 1520 VIA WHEELCHAIR ASSISTED BY NURSING STAFF. PT HAD EXTENDED FAMILY WITH HIM THAT IS SUPPORTIVE, FAMILY REQUESTED PT SCRIPTS BE SENT TO [facility] IN [place]. NO CONTROLLED MEDS NOTED, WITH APPROVAL OF CHARGE NURSE THIS NURSE CALLED SCRIPTS INTO [facility].TRANFER PT TO FAMILY VEHICLE WITH STAND BY ASSIST ONLY, NO FURTHER QUESTIONS OR CONCERNS NOTED CALLED INTO [facility] IN [place], NO CONTROLLED MEDS NOTED, THIS NURSE TALKED WITH CHARGE NURSE AND RECEIVED THE OK TO DO SO. SPOKE WITH PHARMACISTS ON DUTY AND GAVE ORDERS WRITTEN.
[2018-06-15 02:05] LABS: IgA 87 mg/dL (61-437); IgG 674 mg/dL (700-1600); IgM 81 mg/dL (20-172)
[2018-06-18 18:07] LABS: GLOBULIN TOTAL 2.1 g/dL (2.2-3.9); M-SPIKE Not Observed g/dL (Not Observed)
== END 2018-06-14 15:30 | disposition home or self-care (01) | DRG 177 ==
LOC: M.ERS 14:44 → M.TBA-ER 18:14 → M.2W 18:14 → M.ORTHSURG 18:14 → M.2W 18:54 → M.ORTHSURG 06-04 19:30
PROVIDERS: Emergency Medicine Emergency Medical Services; Internal Medicine; Internal Medicine Gastroenterology; ADMIT Internal Medicine
PROC: 0DJD8ZZ Inspection of Lower Intestinal Tract, Via Natural or Artificial Opening Endoscopic (ICD-10-PCS; principal; 2018-06-04)
PROC: 02HV33Z Insertion of Infusion Device into Superior Vena Cava, Percutaneous Approach (ICD-10-PCS; 2018-06-06)
PROC: 3E0436Z Introduction of Nutritional Substance into Central Vein, Percutaneous Approach (ICD-10-PCS; 2018-06-06)
PROC: 0DJD8ZZ Inspection of Lower Intestinal Tract, Via Natural or Artificial Opening Endoscopic (ICD-10-PCS; 2018-06-06)
PROC: 0D7M8ZZ Dilation of Descending Colon, Via Natural or Artificial Opening Endoscopic (ICD-10-PCS; 2018-06-11)
DX: J15.6 Pneumonia due to other Gram-negative bacteria (principal); R65.11 Systemic inflammatory response syndrome (SIRS) of non-infectious origin with acute organ dysfunction; J96.01 Acute respiratory failure with hypoxia; K56.690 Other partial intestinal obstruction; J44.1 Chronic obstructive pulmonary disease with (acute) exacerbation; E44.1 Mild protein-calorie malnutrition; I48.1 Persistent atrial fibrillation; I50.32 Chronic diastolic (congestive) heart failure; E87.1 Hypo-osmolality and hyponatremia; J15.9 Unspecified bacterial pneumonia; K57.30 Diverticulosis of large intestine without perforation or abscess without bleeding; I11.0 Hypertensive heart disease with heart failure; K52.9 Noninfective gastroenteritis and colitis, unspecified; K59.09 Other constipation; E87.8 Other disorders of electrolyte and fluid balance, not elsewhere classified; E87.5 Hyperkalemia; E83.41 Hypermagnesemia; K21.9 Gastro-esophageal reflux disease without esophagitis; F17.210 Nicotine dependence, cigarettes, uncomplicated; Z79.01 Long term (current) use of anticoagulants; Z85.038 Personal history of other malignant neoplasm of large intestine; Z79.899 Other long term (current) drug therapy; Z82.49 Family history of ischemic heart disease and other diseases of the circulatory system; Z82.3 Family history of stroke

== ENCOUNTER 2018-06-23 17:43 | Emergency (ER) | payer MEDICAID, MEDICARE ==
[~2018-06-23] VITALS: Ht 185.4 cm; Wt 84.8 kg
[~2018-06-23 17:43] MED LIST changes: +CARTIA XT240 M1 PO; +ERYTHROMYCIN250 M1 PO; +MIRALAX17 GM PO; +POTASSIUM20 PO; +SENNA-DOCUSATE1 EACH PO
[2018-06-23 18:35] LABS: HEMATOCRIT 45.7 % (42.0-52.0); HEMOGLOBIN 15.6 gm/dL (14.0-18.0); MCH 29.2 pg (26.0-34.0); MCHC 34.1 g/dL (28.0-37.0); MCV 85.7 fL (80.0-100.0); MPV 8.6 fl. (7.2-11.1); NUCLEATED RBCS 0 /100WBC; PLATELET COUNT* 230 thou/uL (150-400); RBC 5.33 mil/uL (4.50-6.00); RDW-CV 15.5 % (10.5-14.5); WBC 9.5 thou/uL (4.0-11.0)
[2018-06-23 18:44] LABS: CALCIUM 8.6 mg/dL (8.5-10.1); CREATININE 0.7 mg/dL (0.6-1.3); POTASSIUM 4.1 mmol/L (3.5-5.1)
[2018-06-23 18:58] LABS: ABSOLUTE LYMPHOCYTES 0.8 thou/uL (0.8-5.3); ABSOLUTE MONOCYTES 0.8 thou/uL (0.0-1.2)
[2018-06-23 18:59] LABS: PLATELET ESTIMATE ADEQUATE
[2018-06-23 19:01] LABS: ALBUMIN 3.5 g/dL (3.4-5.0); TOTAL BILIRUBIN 0.5 mg/dL (<0.1-1.0); TOTAL PROTEIN 7.3 g/dL (6.4-8.2)
[2018-06-23 20:12] LABS: URINE BILIRUBIN NEGATIVE (Negative); URINE BLOOD NEGATIVE (Negative); URINE CLARITY CLEAR; URINE COLOR YELLOW; URINE GLUCOSE-RANDOM NEGATIVE (Negative); URINE KETONES NEGATIVE (Negative); URINE LEUKOCYTES-REFLEX NEGATIVE (Negative); URINE NITRITE-REFLEX NEGATIVE (Negative); URINE PROTEIN NEGATIVE (Negative); URINE SPECIFIC GRAVITY <= 1.005 (1.005-1.030); URINE UROBILINOGEN 0.2 E.U./dl (0.2-1.0)
[2018-06-23 21:40] VITALS: BP 127/83
== END 2018-06-23 21:41 | disposition home or self-care (01) ==
LOC: M.ERS 17:43
PROVIDERS: Nurse Practitioner Family
DX: R19.7 Diarrhea, unspecified (principal); E87.1 Hypo-osmolality and hyponatremia; I48.91 Unspecified atrial fibrillation; F17.210 Nicotine dependence, cigarettes, uncomplicated; Z85.038 Personal history of other malignant neoplasm of large intestine

== ENCOUNTER 2018-08-21 20:49 | Inpatient (IN) | payer MEDICARE, MEDICAID ==
[~2018-08-21] VITALS: Ht 185.4 cm; Wt 90.3 kg
--- NOTE | ~2018-08-21 | CON ---
[address] [address] CONSULTATION Name: FLEXROSALEE W Room: [address] IN M.R.#: [id number] Admission: 08/21/18 Attend Phys: Bertha Amanda MD Discharge: Date of : 53 Report #: [id number] THIS REPORT FOR: //name// CC: Ariana Amanda DATE OF SERVICE: 08/25/2018 REQUESTING PHYSICIAN: Dr. Bertha Amanda. INDICATION FOR CONSULT: Abdominal distention and constipation. HISTORY OF PRESENT ILLNESS: This is a 62-year-old male who is well known to us as he was in the hospital back in mid May with M[place] syndrome and underwent colonoscopy with decompression tube placement. The patient had been transferred from another facility to [facility] for acute respiratory distress and syncopal episode. We were once again consulted for abdominal distention with KUB suggestive of mild dilation of the loops of bowel, mainly in the proximal to mid colon. The patient currently denies any abdominal symptoms and reports that he had 2 bowel movements last night and one today. He reports that his abdomen is soft and denies any pain. The patient also had a KUB back on which had confronted some dilation of the proximal loops of large bowel. PAST MEDICAL HISTORY: Significant for history of [place]in[place] syndrome, hypertension, constipation, hypothyroidism, coronary artery disease, a-fib, chronic anticoagulation use, COPD, hernia repair and lung surgery in the past. ALLERGIES: No known drug allergy. MEDICATIONS: Please refer to hospital MAR. SOCIAL HISTORY: The patient continues to smoke half a pack of cigarettes per day. Denies alcohol use. FAMILY HISTORY: Noncontributory. PHYSICAL EXAMINATION: VITAL SIGNS: Reveals blood pressure of 134/81, respirations 17, pulse 116, temperature 98.7. LUNGS: Clear. CARDIOVASCULAR: Regular rate. ABDOMEN: Soft, nontender, nondistended. [place] [address] CONSULTATION Name: ROSALEE MCCORD Room: [address] IN [facility]#: [id number] Admission: 08/21/18 Attend Phys: Bertha Amanda MD Discharge: Date of : 53 Report #: [id number] NEUROLOGIC: The patient is alert, oriented x 3. LABORATORY DATA: Reveal sodium of 137, potassium 4.8, BUN is 17, creatinine 0.6, glucose is 112. Liver function tests are all within normal limits. Alkaline phosphatase is 50, ALT is 82, AST 35, albumin is 3.1. Ammonia level is 47. WBC is 11.3 with hemoglobin of 13.9 and platelet of 193. IMAGING: As discussed above. ASSESSMENT AND PLAN: The patient with history of Norberto's syndrome, who presented with syncopal episodes and shortness of air and found to have dilation of the large loops of bowel, mainly in the proximal region. Since that x-ray, the patient has had 3 bowel movements and his abdomen is soft. He has been started on MiraLax to which he seems to be responding. We will continue the current regimen and make sure that the patient is on a continuous bowel regimen. At this time, I see no further workup or recommendation. We will follow up on p.r.n. basis. By: 1259 [id number] Camejo MD /nt
[2018-08-21 20:40] VITALS: BP 133/86
[2018-08-22] VITALS: BP 129/79
--- NOTE | 2018-08-22 03:06 | NUR ---
RECEIVED REPORT FROM OPAL ABURTO AT [address] PT TRANSPORTED BY [facility], ARRIVED AT 2039 BY EMS TO ROOM 212. VSS. CARDIAC MONITORING IN PLACE. PT ORIENTATED TO ROOM, CALL LIGHT, FALL POLICY. ALL QUESTIONS ANSWERED AT THIS TIME. ASSESSMENT COMPLETED CHARTED. ADMISSION COMPLETE BY NURSING. HOME MEDICATION REC COMPLETED. BED LOCKED IN LOWEST POSITION, CALL LIGHT WITHIN REACH, BED ALARM ON. WILL CONTINUR TO MONITOR FOR REMAINDER OF THE SHIFT
[2018-08-22 04:00] VITALS: BP 101/74
[2018-08-22 04:56] LABS: HEMATOCRIT 43.6 % (42.0-52.0); HEMOGLOBIN 14.3 gm/dL (14.0-18.0); MCH 29.7 pg (26.0-34.0); MCHC 32.7 g/dL (28.0-37.0); MCV 90.7 fL (80.0-100.0); MPV 9.4 fl. (7.2-11.1); RBC 4.81 mil/uL (4.50-6.00); RDW-CV 16.9 % (10.5-14.5); WBC 9.5 thou/uL (4.0-11.0)
[2018-08-22 05:13] LABS: ALBUMIN 2.8 g/dL (3.4-5.0); CALCIUM 8.4 mg/dL (8.5-10.1); CREATININE 0.8 mg/dL (0.6-1.3); MAGNESIUM 2.1 mg/dL (1.8-2.4); POTASSIUM 3.8 mmol/L (3.5-5.1); TOTAL BILIRUBIN 0.7 mg/dL (<0.1-1.0); TOTAL PROTEIN 5.7 g/dL (6.4-8.2)
--- NOTE | 2018-08-22 07:25 | NUR ---
CHANGFE OF SHIFT, BEDSIDE REPORT GIVEN PATIENT SEEN AT BEDSIDE, IN BED ASLEEP ASSUMED PATIENT CARE
[2018-08-22 08:00] VITALS: BP 118/52
--- NOTE | 2018-08-22 10:22 | EKG ---
[place] [address] ELECTROCARDIOGRAM REPORT Name: ROSALEE MCCORD Room: [address] ADM IN .R.#: [id number] Admission: 08/21/18 Attend Phys: Bertha Amanda MD Discharge: Date of : 53 Report #: [id number] THIS REPORT FOR: //name// [facility] Test Date: 2018-08-22 Test Time: 01:16:19 Pat Name: ROSALEE MCCORD Department: Room: [address] Gender: M Laundry Agent: FABRIZIO : 1955 Requested By: Bertha Amanda Order Number: [id number] Reading MD: Song Negrete Measurements Intervals [place] Rate: 101 P: [place]: QRS: 116 QRSD: 121 T: QT: 254 QTc: 330 Interpretive Statements Atrial flutter RBBB Nonspecific repol abnormality, lateral leads Compared to ECG 06/02/2018 15:20:23 Right bundle-branch block now present Sinus rhythm no longer present Electronically Signed On 08-22-2018 10:22:11 CDT by Song Negrete [email or web address] <ELECTRONICALLY SIGNED> By: Song Negrete MD, [facility] 08/22/18 1022 0116 Song Negrete MD, [facility] /EPI
[2018-08-22 11:33] VITALS: BP 103/70
--- NOTE | 2018-08-22 13:47 | NUR ---
Pt is A&O. Resides at home alone. Independent with ADLs, continues to cook, clean and drive. No DME. No hx of HH or SNF. Strong support sx. [place]. No needs anticipated.
[2018-08-22 15:39] VITALS: BP 115/74
[2018-08-22 19:10] VITALS: BP 116/65
--- NOTE | 2018-08-22 22:20 | NUR ---
INITIAL ASSESSMENT COMPLETE. PT DENIES PAIN. VSS. IV ABT GIVEN ORDER WITHOUT COMPLICATION. PT REMAINS ON 4LPM O2 VIA NC. TRACING A FLUTTER ON TELEMETRY. PT UP TO BSC WITH SBA. PT DENIES ANY FURTHER NEEDS AT THIS TIME. BED ALARM ON. CLWR
[2018-08-23] VITALS (7 sets, daily range): BP systolic 98–112; BP diastolic 54–78
--- NOTE | 2018-08-23 06:39 | NUR ---
PT SLEPT WELL T/O THIS SHIFT. NO C/O PAIN, N/V/D. VSS. REMAINS AFIB/AFLUTTER ON MONITOR. BOGGS IN PLACE DRAINING APPROPRIATELY. NO NEW CONCERNS.
--- NOTE | 2018-08-23 07:30 | NUR ---
ASSUMED CARE OF PT ASSESSED AND DOCUMENTED. PT IS ON CARDIAC MONITER TRACING AFLUTTER HR 88. PT IS A&O WITH NO C/O PAIN. HE REMAINS ON FALL PRECAUTIONS PER FACILITY PROTOCOL. VSS WNL. PT IS AFERILE. HE REMAINS ON 4L OF 02. PT HAS TREMURS IN HIS HANDS AND STATES THIS STARTED A FEW MONTHS AGO. BED IS IN LOW POSITION CALL LIGHT IS IN REACH. WM.
--- NOTE | 2018-08-23 12:50 | EKG ---
[place] [address] ELECTROCARDIOGRAM REPORT Name: ROSALEE MCCORD Room: [address] ADM IN .R.#: [id number] Admission: 08/21/18 Attend Phys: Bertha Amanda MD Discharge: Date of : 53 Report #: [id number] THIS REPORT FOR: //name// [facility] Test Date: 2018-08-23 Test Time: 07:46:37 Pat Name: ROSALEE MCCORD Department: Room: [address] Gender: M Hard Candy Spinner: : 1955 Requested By: Song Negrete Order Number: [id number] Reading MD: Chalino Duarte Measurements Intervals [place] Rate: 79 P: [place]: QRS: 48 QRSD: 119 T: -59 QT: 419 QTc: 481 Interpretive Statements Atrial flutter Ventricular bigeminy Incomplete right bundle branch block ST depr, consider ischemia, inferior leads Compared to ECG 08/22/2018 01:16:19 Ventricular premature complex(es) now present Incomplete right bundle-branch block now present Possible ischemia now present Right bundle-branch block no longer present Early repolarization no longer present Electronically Signed On 08-23-2018 12:50:37 CDT by Chalino Duarte [email or web address] <ELECTRONICALLY SIGNED> By: Chalino Duarte MD, FACC 08/23/18 1250 0746 Chalino Duarte MD, FACC /EPI
[2018-08-23 15:06] LABS: CA 125 10.1 U/mL (Not Estab.)
--- NOTE | 2018-08-23 17:43 | NUR ---
PT HAS RESTED IN HIS ROOM WATCHING TV AND TALKING ON THE PHONE. EDUCATION GIVEN ON DEMAND. HOURLY ROUNDING COMPLETE.
--- NOTE | 2018-08-23 23:00 | NUR ---
ASSESSMENT COMPPLETED. PT TRACING AFIB ON MONITOR. VSS. PT DENIES PAIN. PT REMAINS ON 4LPM O2 VIA NC WITH ADEQUATE O2 SATS. PRODUCTIVE COUGH. RHONCHI NOTED IN BILATERAL UPPER LOBES , CLEARED WITH COUGH. IN TO RIGHT AC D/C'D PER PT REQUEST. PT HAS IV TO LEFT FA SL, FLUSHING WELL. IV ABT GIVEN ORDERED. BED ALARM ON, CLWR.
[2018-08-24 00:49] VITALS: BP 127/79
[2018-08-24 04:10] VITALS: BP 121/86
[2018-08-24 04:44] LABS: HEMATOCRIT 43.4 % (42.0-52.0); HEMOGLOBIN 13.8 gm/dL (14.0-18.0); MCH 29.1 pg (26.0-34.0); MCHC 31.8 g/dL (28.0-37.0); MCV 91.5 fL (80.0-100.0); MPV 9.8 fl. (7.2-11.1); RBC 4.74 mil/uL (4.50-6.00); RDW-CV 16.8 % (10.5-14.5); WBC 12.8 thou/uL (4.0-11.0)
[2018-08-24 05:10] LABS: ALBUMIN 3.1 g/dL (3.4-5.0); CALCIUM 8.8 mg/dL (8.5-10.1); CREATININE 0.7 mg/dL (0.6-1.3); MAGNESIUM 2.1 mg/dL (1.8-2.4); POTASSIUM 4.6 mmol/L (3.5-5.1); TOTAL BILIRUBIN 0.6 mg/dL (<0.1-1.0); TOTAL PROTEIN 5.9 g/dL (6.4-8.2)
--- NOTE | 2018-08-24 06:07 | NUR ---
PT HAS SLEPT WELL T/O THIS SHIFT. NO N/O PAIN, SOA. NO NEW CONCERNS AT THIS TIME.
--- NOTE | 2018-08-24 07:30 | NUR ---
ASSUMED CARE OF PT ASSESSED AND DOCUMENTED. PT IS ON CARDIAC MONITER TRACING A FLUTTER HR 113. PT IS A&O WITH NO C/O PAIN. WSS WNL. PT IS AFEBRILE. HE CONT ON FALL RISK PER FACILITY PROTOCOL. BOGGS HAS DARK YELLOW URINE. ABD IS DISTENDED BUT SOFT. BED IS IN LOW POSITION CALL LIGHT IS IN REACH. WM.
[2018-08-24 08:00] VITALS: BP 108/75
[2018-08-24 11:50] VITALS: BP 94/65
[2018-08-24 15:44] VITALS: BP 107/63
--- NOTE | 2018-08-24 17:06 | NUR ---
PT HAS RESTED IN HIS ROOM IN BEDSIDE CHAIR. EDUCATION GIVEN ON DEMAND. HOURLY ROUNDING COMPLETE. PTR HAS HAD NO C/O PAIN OR DISCOMFORT.
[2018-08-24 20:00] VITALS: BP 114/64
[2018-08-25 00:34] VITALS: BP 115/69
[2018-08-25 04:34] VITALS: BP 134/81
--- NOTE | 2018-08-25 04:47 | NUR ---
VITALS WNL. SEE MAR. SEE CHARTING. FALL PRECAUTIONS IN PLACE. HOURLY ROUNDING FOR SAFETY.
[2018-08-25 04:48] LABS: HEMATOCRIT 43.4 % (42.0-52.0); HEMOGLOBIN 13.9 gm/dL (14.0-18.0); MCH 29.1 pg (26.0-34.0); MCV 91.2 fL (80.0-100.0); MPV 9.5 fl. (7.2-11.1); RBC 4.76 mil/uL (4.50-6.00); RDW-CV 16.8 % (10.5-14.5); WBC 11.3 thou/uL (4.0-11.0)
[2018-08-25 05:14] LABS: CALCIUM 8.6 mg/dL (8.5-10.1); CREATININE 0.6 mg/dL (0.6-1.3); MAGNESIUM 2.1 mg/dL (1.8-2.4); POTASSIUM 4.8 mmol/L (3.5-5.1)
--- NOTE | 2018-08-25 07:00 | NUR ---
CHANGE OF SHIFT, BEDSIDE REPORT GIVEN PATIENT SEEN AT BEDSIDE, IN BED ASLLEP ASSUMED PATIENT CARE
[2018-08-25 08:00] VITALS: BP 117/69
--- NOTE | 2018-08-25 09:09 | CON ---
[address] [address] CONSULTATION Name: ROSALEE MCCORD Room: [address] IN .R.#: [id number] Admission: 08/21/18 Attend Phys: Bertha Amanda MD Discharge: Date of : 53 Report #: [id number] THIS REPORT FOR: //name// CC: Ariana Griffiths SHEET METAL PRODUCTION WORKER Bertha Amanda DATE OF SERVICE: 08/22/2018 HISTORY OF PRESENT ILLNESS: The patient is a 62-year-old single white male who I was asked to see in the hospital today after a syncopal spell. The history is obtained from the patient as well as some old records. He has been hospitalized here at [facility]. He was initially seen by Dr. Wyatt in April. He was having persistent atrial fibrillation. He underwent a ASTRID and was cardioverted. He was started on amiodarone. He then saw Dr. Wyatt again in May. He was actually admitted with colonic obstruction. The patient was felt to be doing well from a cardiac standpoint, remained in sinus rhythm. 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 He developed pneumonia during that hospitalization. The patient is not very active. Apparently, he was sitting in a chair at home recently when he fell to the floor. He thinks he lost consciousness. He went to bed. Two days later, he was coughing, short of breath. He went to the Emergency Room at [place]. He was felt to have pneumonia. He was transferred to the [place] last night and admitted. PAST MEDICAL HISTORY: Significant for previous bilateral lung surgery for pneumonia at [facility]. He has had a hernia. He has a history of hypertension. CURRENT MEDICATIONS: Consist of Lasix, potassium, Cardizem, amiodarone, Eliquis, lisinopril. ALLERGIES: He has no known drug allergies. FAMILY HISTORY: Positive for heart disease. SOCIAL HISTORY: He is , lives by himself in [place]. He is on disability. He used to work on a farm. Smokes half pack of cigarettes a day, occasionally drinks alcohol. REVIEW OF SYSTEMS: He has had no history of stroke, asthma, peptic ulcer disease, liver disease, kidney disease, cancer, psychiatric illness. PHYSICAL EXAMINATION: GENERAL: Revealed a middle-aged male lying in bed, [place] [address] CONSULTATION Name: ROSALEE MCCORD Room: [address] IN [facility]#: [id number] Admission: 08/21/18 Attend Phys: Bertha Amanda MD Discharge: Date of : 53 Report #: [id number] distress. VITAL SIGNS: Blood pressure 120/60, pulse is 100. He is afebrile. HEENT: He is anicteric. Conjunctivae pink. Mucous membranes appear dry. NECK: Veins nondistended. No carotid bruits. CHEST: Clear to auscultation. CARDIOVASCULAR: Irregular rhythm. No significant murmur. ABDOMEN: Distended, soft. He had large area of ecchymosis over the abdomen. EXTREMITIES: Had 1+ edema up to the mid tibial area. Dorsalis pedis pulse could not be palpated. SKIN: Cool and dry. LABORATORY DATA: His ECG shows what appears to represent atrial flutter with a controlled ventricular response rate. His workup so far sodium 141, creatinine 0.8. His white blood cell count 9.5, hemoglobin 14.3. He had no x-rays done here. IMPRESSION AND RECOMMENDATIONS: 1. Atrial arrhythmias. The patient currently appears to be back in atrial flutter. Because of his recent fall, I would not resume anticoagulation. I would aim for rate control at this time. 2. Chronic obstructive pulmonary disease. 3. Syncopal spell. Possible symptomatic bradycardia. We will continue to monitor. 4. Tobacco abuse. 5. History of hypertension. The patient has been on a calcium tish and CAROLIN inhibitor. <ELECTRONICALLY SIGNED> By: Tre Wyatt MD, FACC 08/25/18 0909 0932 2033Dsakshi Negrete MD, FACC /nt
[2018-08-25 12:49] VITALS: BP 123/84
[2018-08-25 13:08] LABS: CA 19-9 30 U/mL (0-35)
[2018-08-25 16:07] LABS: HEPATITIS B SURFACE AG Negative (Negative)
[2018-08-25 17:16] VITALS: BP 116/73
[2018-08-25 19:44] VITALS: BP 106/67
[2018-08-26] VITALS (9 sets, daily range): BP systolic 114–127; BP diastolic 59–86
--- NOTE | 2018-08-26 05:32 | NUR ---
Pt denies complaints. VSS. Aflutter per monitor; rate controlled in 90s as of 414 this morning. Quiroz draining clear yellow urine. Will continue to monitor.
[2018-08-27] VITALS (8 sets, daily range): BP systolic 113–140; BP diastolic 66–87
--- NOTE | 2018-08-27 03:17 | NUR ---
ASSUMED CARE OF PATIENT AT 1900. VSS, AFEBRILE. UP TO CHAIR UNTIL READY FOR BED. ABLE TO VOID SEVERAL TIMES USING URINAL. DENIES PAIN, SOA OR N/V. REQUESTS FREQUENT SNACKS AND DRINKS. NO S/S OF DISTRESS. PROGRESSING TOWARDS POC GOALS.
--- NOTE | 2018-08-27 08:42 | CARD ---
[address] [address] CARDIAC CATH REPORT Name: ROSALEE MCCORD Raj Room: [address] IN ..#: [id number] Admission: 08/21/18 Attend Phys: Bertha Amanda MD Discharge: Date of : 53 Report #: [id number] THIS REPORT FOR: //name// CC: Ariana Amanda PROCEDURE: Direct current cardioversion. INDICATION: Persistent atrial flutter. DESCRIPTION OF PROCEDURE: After informed consent was obtained, the patient was brought to the cardiac catheterization holding area. The patient was given intravenous Versed and fentanyl for conscious sedation. Once the patient was adequately sedated, he was cardioverted from atrial flutter to normal sinus rhythm with a single biphasic shock of 300 joules. The patient tolerated the procedure well without complication. IMPRESSION: 1. Persistent atrial flutter. 2. Successful cardioversion to normal sinus rhythm with a single biphasic shock of 300 joules. <ELECTRONICALLY SIGNED> By: Tre Wyatt MD, FACC 08/27/18 0842 [id number] Wyatt MD, FACC /nt
--- NOTE | 2018-08-27 13:57 | NUR ---
VSS, ASSUMED CARE IN THE AM, ASSESSMENT PERFORMED AND CHARTED, FALL PRECAUTIONS IN PLACE AND CALL LIGHT IN REACH, PT IS A&O4, ON 1L NC ANS IS TRACING SR ON THE MONITOR, PT IS UP WITH STAND BY, HIS GOAL IS TO IMPROVE BREATHING AND D/C TO HOME ON DAY OF CARE, WILL FOLLOW WITH PLAN OF CARE AND D/C ORDERS,
--- NOTE | 2018-08-27 14:41 | NUR ---
I HAVE REVIEWED THE REASSESSMENT AND DOCUMENTATION BY STUDENT NURSE DIONISIO CHAVEZ AND AGREE
[2018-08-27] MEDS ORDERED: SINGULAIR 10 MG10 MG PO (15:39)
--- NOTE | 2018-08-27 15:40 | NUR ---
GIFTED TEACHER SPOKE TO TOM WITH [employer] TO INFORM OF THE DME REFERRAL FOR HOME OXYGEN FOR THE PATIENT. D/C BALANCING MACHINE SET UP WORKER FAXED PATIENT'S FACESHEET, H&P, RT REST AND SAT NOTES, AND ORDER FOR OXYGEN TO [employer]. [employer] TO RETURN CALL TO INFORM OF APPROVAL AND TIME OF DELIVERY OF THE OXYGEN. CM WILL REMAIN AVAILABLE TO ASSIST AND FOLLOW NEEDED.
[2018-08-27] MEDS ORDERED: PREDNISONE 10 M10 MG PO (15:41)
[2018-08-27] MEDS ORDERED: FLOMAX0.4 MG PO (15:42)
[2018-08-27] MEDS ORDERED: CEFDINIR300 MG PO (15:46)
--- NOTE | 2018-08-27 17:47 | NUR ---
VSS, RECIEVED D/C ORDERS, TOOK OUT IV AND TELE MONITOR, AND CALLED IN MEDS, PT DENIES ANY QUESTIONS AT TIME OF D/C, GOURLY ROUNDS COMPLETED AND PT WALKED OUT VIA WHEEL CHAIR TO CAR.
--- NOTE | 2018-08-29 09:30 | CON ---
[address] [address] CONSULTATION Name: ROSALEE MCCORD Room: [address] IN .R.#: [id number] Admission: 08/21/18 Attend Phys: Bertha Amanda MD Discharge: 08/27/18 Date of : 53 Report #: [id number] THIS REPORT FOR: //name// CC: Ariana Amanda DATE OF SERVICE: 08/22/2018 NEW PATIENT CONSULTATION REFERRING PHYSICIANS: Dr. Aragon and Dr. Amanda. REASON FOR CONSULTATION: COPD. HISTORY OF PRESENT ILLNESS: History was obtained from the patient and his family. The patient is a 62-year-old pleasant gentleman who was admitted for evaluation after syncope. The patient states he passed out. He was trying to turn off the TV. While he was standing, the patient felt slightly dizzy and he found himself on the floor. He denies any preceding chest pain, palpitation or shortness of breath. He woke up, had back pain. He was found to have severe ecchymosis in his back radiating to the front of his abdomen. He denies any chest pain, change of cough or shortness of breath. He has history of chronic cough for several years productive of clear to white mucus. He has been a chronic smoker. He has been smoking since his teenage years, has been smoking around 1/2 pack or more and continues to smoke. He has exertional dyspnea on moderate to severe exertion, occasional wheezing; however, no significant change recently. Denies any history of hemoptysis. Again, no chest pain. The patient denies fever or chills. No history of further syncope. Please note that in May, he was admitted, he had colonic pseudoobstruction at that time, had evaluation for atrial fibrillation, had cardioversion. CURRENT MEDICATIONS: Reviewed and include albuterol and ipratropium every 4 hours, Cardizem ER 120, Cardizem 30 mg p.o. q. 6 hours, amiodarone 200 mg daily, apixaban. Lasix as above. He is on steroids q. 8 hours 62.5 mg, cefepime 2 g b.i.d. and was given potassium. PAST MEDICAL HISTORY: Includes previous history of diarrhea, colonic pseudoobstruction, history of COPD, per history, though the patient is not on chronic treatment or did not have pulmonary evaluation in the past. History of atrial fibrillation, hypertension, previous history of lung surgery. The patient had a previous history of congestive heart failure. FAMILY HISTORY: Significant for heart disease. SOCIAL HISTORY: Denies recreational drugs. He is currently smoking, 1/2 [place] [address] CONSULTATION Name: ROSALEE MCCORD Room: [address] IN ..#: [id number] Admission: 08/21/18 Attend Phys: Bertha Amanda MD Discharge: 08/27/18 Date of : 53 Report #: [id number] per day since he was a teenager. Denies alcohol abuse. REVIEW OF SYSTEMS: CONSTITUTIONAL: No fever. No rash. EYES: Wearing glasses. ENT: No runny nose or congestion. GASTROINTESTINAL: Denies dysphagia. RESPIRATORY: As above, exertional shortness of breath. He has chronic cough. CARDIOVASCULAR: No chest pain. Has syncope. GENITOURINARY: Difficulty voiding. MUSCULOSKELETAL: Denies joint pain. HEMATOLOGIC: He has severe bruising on his back and front of his abdomen. INTEGUMENTARY: As above, bruising post fall. NEUROLOGIC: History of syncope. Otherwise, 12-point review of systems as above. PHYSICAL EXAMINATION: GENERAL: The patient is alert. HEAD: Normocephalic, atraumatic. No bruising in his head. EYES: Pupils are reactive. MOUTH: Dry mucous membranes. NECK: Supple. No JVD. CARDIOVASCULAR: Had a regular rhythm. Normal S1, S2. No murmur. LUNGS: He has diffusely decreased breath sounds, but no wheezing, symmetric, has barrel chest. ABDOMEN: Soft, nontender; however, distended. No organomegaly. Has diffuse bruising in his abdomen extending to his back. SKIN: As above with bruising. PSYCHIATRIC: Appropriate, anxious. NEUROLOGIC: Alert, oriented. LABORATORY DATABASE: He had a chest CT and abdomen, which is pending. Other labs, white blood cell count 9.5, hemoglobin 14.3, platelets 191. His lactic acid was 1. Protein is 4.7. TSH 0.6. RADIOLOGY: Previous imaging reviewed including a chest x-ray from 06/07/2018 showed upper abdominal gaseous distention with elevated right hemidiaphragm. ASSESSMENT AND PLAN: 1. Chronic bronchitis. 2. Chronic obstructive pulmonary disease. 3. Elevated right hemidiaphragm, suspect paralysis. 4. Syncope. 5. Bruising, ecchymosis. PLAN: [address] [place] [address] CONSULTATION Name: ROSALEE MCCORD Room: [address] IN [facility].#: [id number] Admission: 08/21/18 Attend Phys: Bertha Amanda MD Discharge: 08/27/18 Date of : 53 Report #: [id number] 1. Chronic obstructive pulmonary disease. At this time, the patient has chronic bronchitis related to chronic obstructive pulmonary disease, active smoking. He is not in exacerbation. His symptoms are at baseline and recommend: 1. Change bronchodilators as needed. 2. Change her steroids to daily at this time with Solu-Medrol 60 mg once daily. 3. Doubt pneumonia. Recommend to deescalate antibiotics to Levaquin for chronic obstructive pulmonary disease exacerbation. 4. No indication for BiPAP. 2. Syncope. We will defer to cardiology. The patient has history of atrial fibrillation and need to evaluate for cardiac etiology. The patient did not have chronic obstructive pulmonary disease or worse cough exacerbating his syncope. 3. For elevated hemidiaphragm, suspect paralysis, likely related to previous surgery likely contributing to his shortness of breath. 4. Will need PFT as outpatient. Continue current treatment. 5. Will need long-acting bronchodilators and similar to Symbicort as outpatient and need to quit smoking. Also, recommend a followup chest x-ray as well if not already done. I appreciate the referral. Please do not hesitate to call with questions. <ELECTRONICALLY SIGNED> By: Triston Aden MD 08/29/18 0930 [id number] Fidencio Uribe MD /nt
== END 2018-08-27 17:50 | disposition home or self-care (01) | DRG 177 ==
LOC: M.2W 20:49
PROVIDERS: Family Medicine; Internal Medicine; ADMIT Family Medicine
PROC: 5A2204Z Restoration of Cardiac Rhythm, Single (ICD-10-PCS; principal; 2018-08-27)
DX: J15.6 Pneumonia due to other Gram-negative bacteria (principal); J96.02 Acute respiratory failure with hypercapnia; J96.01 Acute respiratory failure with hypoxia; J44.1 Chronic obstructive pulmonary disease with (acute) exacerbation; J44.0 Chronic obstructive pulmonary disease with (acute) lower respiratory infection; R65.10 Systemic inflammatory response syndrome (SIRS) of non-infectious origin without acute organ dysfunction; I48.1 Persistent atrial fibrillation; I48.92 Unspecified atrial flutter; D68.59 Other primary thrombophilia; K42.9 Umbilical hernia without obstruction or gangrene; F17.210 Nicotine dependence, cigarettes, uncomplicated; E03.9 Hypothyroidism, unspecified; I25.10 Atherosclerotic heart disease of native coronary artery without angina pectoris; N40.1 Benign prostatic hyperplasia with lower urinary tract symptoms; R33.8 Other retention of urine; I48.0 Paroxysmal atrial fibrillation; Z79.01 Long term (current) use of anticoagulants; I11.0 Hypertensive heart disease with heart failure; I50.9 Heart failure, unspecified; K57.90 Diverticulosis of intestine, part unspecified, without perforation or abscess without bleeding; I27.20 Pulmonary hypertension, unspecified; K73.9 Chronic hepatitis, unspecified; S30.1XXA Contusion of abdominal wall, initial encounter; W18.39XA Other fall on same level, initial encounter; Y93.89 Activity, other specified; Y92.89 Other specified places as the place of occurrence of the external cause; Z79.899 Other long term (current) drug therapy; Z82.49 Family history of ischemic heart disease and other diseases of the circulatory system; Y99.8 Other external cause status